=== PATIENT | male | born 1985 | race Caucasian/White ===

== ENCOUNTER 2020-11-26 10:30 | Emergency (ER) | payer OTHER, SELFPAY ==
[2020-11-26 10:50] VITALS: BP 142/63; PULSE 73; RESP 14; TEMP 36.3; O2SAT 99
--- NOTE | 2020-11-26 11:12 | ED.EXTPRO ---
HPI - Extremity Problem General Chief complaint: Extremity Problem,Nontraumatic Stated complaint: poss blood clot-referred by [facility] and [facility] nurse Time Seen by Provider: 11/26/20 11:12 Source: patient Mode of arrival: Ambulatory Limitations: no limitations History of Present Illness HPI Narrative: This is a 35-year-old male who was referred by walk-in clinic in [facility] for possible blood clot. Patient has some calf discomfort that is been present. There is a very small area of swelling on the posterior calf. Patient denies any other symptoms. He has not had prior case skin infections but states he has had some eczema in the past. Denies any allergies besides penicillin. He denies any daily medical issues. Patient does live on [facility]. Related Data Home Medications Medication Instructions Recorded Confirmed No Known Home Medications 11/26/20 11/26/20 Allergies Allergy/AdvReac Type Severity Reaction Status Date / Time Penicillins Allergy Intermediate Hives Verified 11/26/20 10:56 Review of Systems Review of Systems ROS Unobtainable: All systems reviewed & are unremarkable except as noted in HPI and below Patient History Social History Smoking Status: Never smoker Smoking Status: Never smoker alcohol intake frequency: a few times a month Substance Use Type: does not use Exam Narrative Exam Narrative: GENERAL: Alert and oriented x three, male in mild distress. HEENT: Head normocephalic, atraumatic, EOMI, pupils reactive, face symmetric, moist mucous membranes NECK: Supple, full range of motion CARDIOVASCULAR: Regular rate and rhythm without murmurs, rubs or gallops. RESPIRATORY: Breath sounds equal bilaterally, no wheezes rales or rhonchi. EXTREMITIES: Normal range of motion, no clubbing or edema. Neurovascularly intact. Patient has a small 0.25 cm area of induration without any warmth, erythema or other skin changes appreciated. Patient does have a little irritation at the follicles of the lower extremity in that region. He does not have any lower extremity swelling. His pain is localized to that superficial region. Patient has normal sensation. No bruising, ecchymosis or other changes. There is no not or raised lesion consistent with a thrombophlebitis. NEUROLOGICAL: Cranial nerves II through XII grossly intact. Moving all extremities SKIN: Warm, dry, no petechiae, no rashes or lesions other than noted. Initial Vital Signs Initial Vital Signs: Vital Signs Temperature 97.4 F L 11/26/20 10:50 Pulse Rate 73 11/26/20 10:50 Respiratory Rate 14 11/26/20 10:50 Blood Pressure 142/63 H 11/26/20 10:50 Pulse Oximetry 99 11/26/20 10:50 Course Vital Signs Vital signs: Vital Signs - 8 hr 11/26/20 10:50 Temperature 97.4 F L Pulse Rate 73 Respiratory Rate 14 Blood Pressure 142/63 H Pulse Oximetry 99 MDM - Extremity (Nontraumatic) MDM Narrative Medical decision making narrative: This is a 35-year-old male was sent for evaluation for possible blood clot. On exam patient has what appears to be a very early localized folliculitis with no exam findings consistent with blood clot or DVT. Patient's findings are quite superficial and minimal so I would start with some localized symptomatic treatment and would not put if he antibiotics at this time. Discharge Plan Departure Patient Disposition: Home Clinical Impression: Folliculitis Instructions: DI for Folliculitis Activity Restrictions/Additional Instructions: Follow-up with your physician or return for recheck if you have worsening symptoms. You appear to have a very localized early area of folliculitis. There is a small amount of induration but no warmth or erythema. I would exfoliate the area, use warm compresses 4 times daily and you may use a little topical triple antibiotic ointment to the affected area 3 times daily. You may take Tylenol and or ibuprofen as needed. Return if you develop fevers, increasing redness, warmth, increasing swelling of your lower extremity, purulence drainage or have other new or concerning symptoms. Prescriptions: No Action No Known Home Medications RF: 0
== END 2020-11-26 11:45 | disposition home or self-care (01) ==
PROVIDERS: Emergency Provider Emergency Medicine
DX: L73.9 Follicular disorder, unspecified (principal)
CPT/HCPCS: 99281